=== PATIENT | female | born 1985 | race Two or more races ===

== ENCOUNTER 2019-09-15 21:27 | Emergency (ER) | payer MEDICAID ==
[~2019-09-15] VITALS: Ht 157.5 cm; Wt 86.2 kg
[~2019-09-15 21:27] MED LIST: BIRTH CONTROL; NEXPLANON68 MG SQ; VALIUM10 MG ORAL; ZOFRAN ODT4 MG ORAL; ZOLOFT25 MG ORAL
[2019-09-15] MEDS ORDERED: IBUPROFEN600 M1 ORAL (22:10)
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
[2019-09-15] MEDS ORDERED: HYDROcodone/Acetamin 5/325 tab ORAL ONE (22:15)
[2019-09-15 22:30] VITALS: BP 131/76
[2019-09-15 22:40] VITALS: BP 131/76
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
== END 2019-09-15 22:40 | disposition home or self-care (01) ==
LOC: EMR 22:08
DX: S09.90XA Unspecified injury of head, initial encounter (principal); S39.012A Strain of muscle, fascia and tendon of lower back, initial encounter; J45.909 Unspecified asthma, uncomplicated; V43.52XA Car driver injured in collision with other type car in traffic accident, initial encounter; Y92.411 Interstate highway as the place of occurrence of the external cause
CPT/HCPCS: 70450; 72020; 81025; Z7502; 99284